=== PATIENT | female | born 1935 | race African-American/Black ===

== ENCOUNTER 2019-05-08 01:11 | Observation (INO) | payer MEDICARE ==
[2019-05-08] MEDS ORDERED: Famotidine/PF 20 mg/2ml Vial ONE (01:34)
[2019-05-08] MEDS ORDERED: methylPREDNISolone Sod Succ/PF 125 MG/2 ML VIAL ONE (01:34)
[2019-05-08] MEDS ORDERED: EPINEPHrine 1 MG/ML AMP ONE (01:34)
[2019-05-08] MEDS ORDERED: Bacteriostatic Water 30 ML VIAL FS PRN (03:17)
[2019-05-08 03:39] LABS: #Basophils 0.1 thou/uL (0.0-0.2); #Lymphocytes 1.6 thou/uL (1.20-3.40); #Monocytes 0.3 thou/uL (0.11-0.59); #Neutrophils 8.6 thou/uL (1.40-6.50); %Basophils 0.5 % (0.0-1.0); %Eosinophils 0.4 % (0.0-10.0); %Lymphocytes 15.3 % (21.0-51.0); %Monocytes 2.7 % (0.0-10.0); Mean Corpuscular HGB CONC 33.8 g/dL (32.0-36.0); Mean Corpuscular Volume 85.8 fL (78.0-98.0); Mean Platelet Volume 8.3 fL (7.4-10.4); Platelet Count 379 thou/uL (130-400); RBC Distribution Width 13.3 % (11.5-14.5); Red Blood Cell (RBC) Count 4.46 mill/uL (4.20-5.40); White Blood Cell (WBC) Count 10.6 thou/uL (4.8-10.8)
[2019-05-08 03:56] LABS: ALT (SGPT) 12 U/L (8-55); AST (SGOT) 19 U/L (5-34); Albumin 3.8 g/dL (3.4-4.8); Alkaline Phosphatase 48 U/L (40-110); Anion Gap 15 mmol/L (10-20); BUN (Urea Nitrogen) 15 mg/dL (9.8-20.1); Bilirubin, Total 0.5 mg/dL (0.2-1.2); Calc. Creatinine Clearance 0 mL/min (70-130); Carbon Dioxide 21 mmol/L (23-31); Chloride 110 mmol/L (98-107); Estimated GFR-MDRD 76; Globulin 3.2 g/dL (2.4-3.5); Glucose 137 mg/dL (83-110); Potassium 3.9 mmol/L (3.5-5.1); Sodium 142 mmol/L (136-145)
--- NOTE | 2019-05-08 04:17 | HP ---
CHIEF COMPLAINT: Tongue swelling. HISTORY OF PRESENT ILLNESS: Ms. Deal is an 83-year-old female with past medical history of hypertension and hyperlipidemia, on BiDil, carvedilol, and atorvastatin, presents to the emergency room with tongue swelling that started this evening. The patient denies shortness of breath or chest pain. She denies fever or chills. She denies itching. She said that she gets this about few times a year. Her PCP suspected environmental causes? The patient received IV Benadryl by EMS. In the ED also, she received IV Pepcid and Solu-Medrol. The patient continues to have significant tongue swelling. The patient is going to be admitted to the hospital for close monitoring and further management. PAST MEDICAL HISTORY: 1. Hypertension. 2. Hyperlipidemia. 3. Allergic reactions? PAST SURGICAL HISTORY: Unable to obtain. The patient is a poor historian and having hard time speaking because of the tongue swelling. FAMILY HISTORY: Unknown, but no history of allergies. HOME MEDICATIONS: As mentioned above in the history of present illness. ALLERGIES: NO KNOWN ALLERGIES. REVIEW OF SYSTEMS: Review of 14 systems negative except what is mentioned in history of present illness. PHYSICAL EXAMINATION: GENERAL: The patient is awake, alert, not in acute distress with apparent swelling of her tongue. NECK: Supple. CHEST: Fair bilateral air entry. No wheezing. No stridor. HEART: S1 and S2. Regular. ABDOMEN: Soft, nontender. Bowel sounds present. NEUROLOGIC: Awake, alert, oriented x3. PSYCH: Normal mood. EXTREMITIES: No clubbing, no cyanosis. LABORATORY DATA: Labs are pending at the time of this dictation, to be followed. ASSESSMENT: 1. Allergic reaction/angioedema. 2. Hypertension. 3. Hyperlipidemia. PLAN: 1. The patient will be admitted for close monitoring. 2. The patient received IV Solu-Medrol, Pepcid, and Benadryl. 3. The patient will benefit from referral to an test developer, which can be done as an outpatient due to the nature of the recurrence and the severity of her symptoms. She would need further workup. 4. Reconcile home medications. 5. DVT prophylaxis as appropriate. 6. Expected length of stay, at least 1 midnight if patient is stable. Job ID: [id number]
[2019-05-08 04:33] VITALS: BMI 24.0
[2019-05-08] MEDS: methylPREDNISolone Sod Succ 40 MG VIAL IVP SCH ×3 (05:43→17:42)
[2019-05-08] MEDS ORDERED: Acetaminophen 325 MG TAB PO PRN (09:36)
[2019-05-08] MEDS ORDERED: HYDROcodone/Acetaminophen 5/325 mg Tablet PO PRN (09:36)
[2019-05-08] MEDS: Famotidine/PF 20 mg/2ml Vial SLOW IVP SCH ×2 (10:01→21:28)
[2019-05-08] MEDS: diphenhydrAMINE 50 MG/ML VIAL IVP SCH ×3 (10:02→21:31)
[2019-05-08] MEDS ORDERED: Carvedilol 25 MG TAB PO SCH ×2 (11:15→17:00)
--- NOTE | 2019-05-08 13:33 | PDOC.EVN ---
Event Note - Event Note Event Note: Seen and examined. Non billable note/ visit. Restart home meds for uncontrolled BP. Tongue swells several times per year, she does not know the cause, appears to have imrpoved and she is feeling better. Will test for C1 esterace def. Breathing well on room air. No stridor. Advance diet. If continues to improve, home tomorrow AM.
[2019-05-08] MEDS: Carvedilol 25 MG TAB PO SCH ×2 (15:23→21:27)
[2019-05-08] MEDS ORDERED: Atorvastatin Calcium 40 MG TAB PO SCH (21:00)
[2019-05-09] MEDS: methylPREDNISolone Sod Succ 40 MG VIAL IVP SCH ×2 (00:57→06:29)
[2019-05-09] MEDS: diphenhydrAMINE 50 MG/ML VIAL IVP SCH ×2 (04:04→08:58)
[2019-05-09 08:45] VITALS: BP 149/68; TEMP 99
[2019-05-09] MEDS: Famotidine/PF 20 mg/2ml Vial SLOW IVP SCH (08:58)
[2019-05-09] MEDS: Carvedilol 25 MG TAB PO SCH (08:58)
--- NOTE | 2019-05-09 14:27 | DIS ---
DATE OF ADMISSION: 05/08/2019 DATE OF DISCHARGE: 05/09/2019 REASON FOR ADMISSION: Swelling of the tongue. SIGNIFICANT FINDINGS: The patient was found to have acute tongue swelling, which apparently happened several times per year. PROCEDURES PERFORMED AND TREATMENTS RENDERED: The patient was admitted to the intermediate medical care floor for close management. She was given IV Benadryl, IV Solu-Medrol, and IV famotidine. With maximum medical therapy, the patient had a good clinical response and her tongue swelling returned to normal. The patient tells me that she has had this worked up by her primary care physician in the outpatient setting, though they have not been able to put a name to it. I ordered a test for C1 esterase deficiency, this test is currently pending. She will follow up on this test result with her primary care physician in the outpatient settings. She is unable to accurately recall any definitive environmental trigger that could have caused this episode. Due to the fact, the patient's symptoms have resolved, she is breathing comfortably on room air, and she is back to her regular state of good health. She was recommended safe for discharge with close followup with her primary care physician. CONDITION ON DISCHARGE: Stable. SPECIFIC INSTRUCTIONS FOR THE PATIENT/FAMILY: 1. The patient is recommended to take all medications as directed. 2. The patient is recommended to follow up with primary care physician in the next 5 to 7 days. 3. The patient is recommended to followup with all other specialists as directed. 4. The patient is recommended to return to acute care hospital immediately if signs or symptoms return, worsen, or any other new symptoms occur. TIME SPENT: Greater than 34 minutes spent coordinating care and discharge process for this patient. Job ID: [id number]
== END 2019-05-09 10:32 | disposition home or self-care (01) ==
LOC: ERS 01:11 → IMCU/EMU 03:12
PROVIDERS: ADMIT Internal Medicine; ATTEND Internal Medicine
DX: T78.3XXA Angioneurotic edema, initial encounter (principal); I10 Essential (primary) hypertension; E78.5 Hyperlipidemia, unspecified; Z79.899 Other long term (current) drug therapy
CPT/HCPCS: 80053; 85025; 86161; 96372; 96374; 96375 ×2; 96376 ×2; 99285; G0378 ×3; 36415; J0171; J1200; J2920; J2930; S0028